=== PATIENT | male | born 1975 | race African-American/Black ===

== ENCOUNTER 2017-09-12 06:56 | Day surgery (SDC) | payer OTHER ==
[~2017-09-12 06:56] MED LIST: FIBER LAXTIV0.52 GM PO; NAPROXEN250 MG PO; STOOL SOFTE1 PO
[2017-09-12 10:42] VITALS: BP 117/79
== END 2017-09-12 12:20 | DRG 352 ==
LOC: ORM 06:56
PROVIDERS: ATTEND Surgery
PROC: 0YU60JZ Supplement Left Inguinal Region with Synthetic Substitute, Open Approach (ICD-10-PCS; principal; 2017-09-12)
DX: K40.90 Unilateral inguinal hernia, without obstruction or gangrene, not specified as recurrent (principal)
CPT/HCPCS: C9290

== ENCOUNTER 2017-09-20 12:34 | Emergency (ER) | payer OTHER ==
[~2017-09-20] VITALS: Ht 175.3 cm; Wt 90.0 kg
[2017-09-20 13:23] LABS: HEMATOCRIT 40.2 % (39.0-50.0); HEMOGLOBIN 12.7 g/dl (14.0-18.0); IMMATURE GRANULOCYTES 0.4 % (0.0-1.0); MEAN CELL VOLUME 85.9 fL CALC (80.0-100.0); MEAN CORPUSCULAR HGB 27.1 pG CALC (26.0-32.0); MEAN CORPUSCULAR HGB CONC 31.6 g/L CALC (32.0-36.0); NEUT# 4.51 thou/uL (1.82-7.42); RED BLOOD COUNT 4.68 mill/uL (4.70-6.10); RED CELL DISTRI WIDTH 12.8 % (11.5-15.5)
[2017-09-20 13:38] LABS: ALBUMIN 4.4 g/dL (3.2-5.0); ALKALINE PHOSPHATASE 49 u/l (38-126); ANION GAP 18 (6-22 (CALC)); BILIRUBIN, TOTAL 0.7 mg/dL (0.0-1.4); BUN 10 mg/dL (9-20); BUN/CREATININE RATIO 11 (12-20 (CALC)); CARBON DIOXIDE 28 mmol/l (22-30); CHLORIDE 100 mmol/l (95-108); CREATININE 0.9 mg/dL (0.7-1.3); GFR > 60 ML/MIN (>=60 (CALC)); GFR FOR AFR.AMER. > 60 ML/MIN (>=60 (CALC)); POTASSIUM 4.6 mmol/l (3.5-5.1); SGOT/AST 40 u/l (17-59); SGPT/ALT 32 u/l (21-72); SODIUM 142 mmol/l (137-146); TOTAL PROTEIN 8.5 g/dL (6.3-8.2)
[2017-09-20] MEDS ORDERED: KEFLEX500 M1 PO (15:35)
[2017-09-20] MEDS ORDERED: BACTRIM DS1 TAB PO (15:35)
[2017-09-20 15:46] VITALS: BP 134/93
[2017-09-20 16:15] LABS: URINE BILIRUBIN - DIPSTICK NEGATIVE (NEGATIVE); URINE BLOOD DIPSTICK NEGATIVE (NEGATIVE); URINE COLOR YELLOW; URINE GLUCOSE - DIPSTICK NEGATIVE (NEGATIVE); URINE KETONE NEGATIVE (NEGATIVE); URINE LEUK ESTERASE NEGATIVE (NEGATIVE); URINE NITRITE - DIPSTICK NEGATIVE (Negative); URINE PH 7.5 (4.5-8.0); URINE PROTEIN - DIPSTICK NEGATIVE (NEG-TRACE); URINE UROBILINOGEN - DIPSTICK 0.2 E.U./dL (0.2)
[2017-09-20 16:23] LABS: URINE CLARITY CLEAR
== END 2017-09-20 16:21 | DRG 948 ==
LOC: ED 12:34
DX: G89.18 Other acute postprocedural pain (principal); N50.89 Other specified disorders of the male genital organs; T81.89XA Other complications of procedures, not elsewhere classified, initial encounter
CPT/HCPCS: Q9967